=== PATIENT | male | born 1945 | race African-American/Black ===

== ENCOUNTER 2024-10-29 10:47 | Inpatient (IN) | payer MEDICARE, OTHER ==
[~2024-10-29] VITALS: Ht 182.9 cm; Wt 83.9 kg
[2024-10-29] MEDS ORDERED: ONDANSETRON HCL/PF 4 MG/2 ML VIAL ONE (11:24)
[2024-10-29] MEDS ORDERED: MORPHINE SULFATE INJ 4 MG/ML DISP.SYRIN ONE (11:24)
[2024-10-29] MEDS ORDERED: PANTOPRAZOLE 40 MG VIAL ONE (11:24)
[2024-10-29] MEDS ORDERED: ACETAMINOPHEN 325 MG TABLET ONE (11:26)
[2024-10-29 11:30] LABS: BASOPHILS # (AUTO) 0.1 K/uL (0.0-0.2); BASOPHILS % (AUTO) 0.6 % (0.0-2.0); EOSINOPHILS # (AUTO) 0.1 K/uL (0.0-0.7); EOSINOPHILS % (AUTO) 0.4 % (0.0-6.0); HEMATOCRIT 25 % (39-51); HEMOGLOBIN 7.8 g/dL (13.5-17.5); LYMPHOCYTES # (AUTO) 1.3 K/uL (0.8-4.8); LYMPHOCYTES % (AUTO) 7.7 % (20.0-44.0); MEAN CORPUSCULAR HEMOGLOBIN 26 PG (26.0-33.0); MEAN CORPUSCULAR HGB CONC 32 g/dl (31.0-36.0); MEAN CORPUSCULAR VOLUME 83 fL (80-96); NEUTROPHILS # (AUTO) 14.1 K/uL (1.8-8.9); NEUTROPHILS % (AUTO) 85.3 % (43.0-81.0); PLATELET COUNT (AUTO) 718 K/uL (150-450); RED BLOOD CELL COUNT(AUTO) 2.97 MIL/uL (4.5-6.0); RED CELL DISTRIBUTION WIDTH 18.3 % (11.5-15.0); WHITE BLOOD COUNT (AUTO) 16.5 K/uL (4.3-11.0)
[2024-10-29] MEDS: IV NS 0.9% 1,000 ML BAG IV ONE (11:30)
[2024-10-29] MEDS: IV NS 0.9% 500 ML BAG IV ONE (11:38)
[2024-10-29 11:43] LABS: CALCIUM, SERUM 9.2 mg/dL (8.5-10.1); CARBON DIOXIDE 28 mmol/L (21-32); CHLORIDE 107 mmol/L (98-107); CREATININE 0.5 mg/dL (0.6-1.3); GLUCOSE 154 mg/dL (74-106); POTASSIUM 4.5 mmol/L (3.5-5.1); SODIUM SERUM 143 mmol/L (136-145); UREA NITROGEN, BLOOD 20 mg/dL (7-18)
[2024-10-29 11:44] LABS: INR 1.2 (0.91-1.10); PARTIAL THROMBOPLASTIN TIME 28.2 SEC (24.3-34.3); PROTHROMBIN TIME 12.6 SECS (9.2-11.1)
[2024-10-29 11:49] LABS: ALANINE AMINOTRANSFERASE 49 U/L (12-78); ALBUMIN 1.7 g/dL (3.4-5.0); ALKALINE PHOSPHATASE 105 U/L (46-116); ASPARTATE AMINOTRANSFERASE 38 U/L (15-37); BILIRUBIN,DIRECT 0.1 mg/dL (0.0-0.2); BILIRUBIN,TOTAL 0.5 mg/dL (0.2-1.0); LIPASE 63 U/L (16-77); TOTAL PROTEIN, SERUM 8.4 g/dL (6.4-8.2)
[2024-10-29 11:52] LABS: LACTIC ACID 1.3 mmol/L (0.4-2.0)
[2024-10-29] MEDS: ACETAMINOPHEN 650 MG/20 ML UDC- SA PATIENTS-FEVER ONLY GT PRN (12:00)
[2024-10-29] MEDS: PIPERACILLIN /TAZOBACTAM 3.375 G in IV D5W 50 ML IV ONE (12:00)
[2024-10-29] MEDS: MORPHINE SULFATE INJ 2 MG/ML DISP.SYRIN IV ONE (12:16)
[2024-10-29] MEDS: PANTOPRAZOLE 40 MG VIAL IV ONE (12:16)
[2024-10-29] MEDS: ONDANSETRON HCL/PF 4 MG/2 ML VIAL IVP ONE (12:16)
[2024-10-29 12:20] LABS: APPEARANCE,URINE CLEAR (CLEAR); BILIRUBIN,URINE NEGATIVE (NEGATIVE); BLOOD, URINE NEGATIVE Ery/uL (NEGATIVE); COLOR,URINE YELLOW (YELLOW); KETONES,URINE NEGATIVE (NEGATIVE); LEUKOCYTE ESTERASE ,URINE NEGATIVE (NEGATIVE); NITRITE, URINE NEGATIVE (NEGATIVE); PROTEIN,URINE TRACE mg/dl (NEGATIVE); UGLUCOSE NEGATIVE (NEGATIVE); UROBILINOGEN,URINE 0.2 EU/dL (0.2)
[2024-10-29 12:28] LABS: ADD URINE CULTURE NO; BACTERIA,URINE Few /HPF (None Seen); MUCUS,URINE Few /LPF (None Seen); RBC,URINE 0-2 /HPF (0-2); SQUAMOUS EPITHELIAL CELL,UR 0-2 /HPF (None Seen)
[2024-10-29] MEDS ORDERED: POVI1MED TP (12:42)
[2024-10-29] MEDS ORDERED: ACET325T53 GT (12:42)
[2024-10-29] MEDS ORDERED: MULT-213 GT (12:42)
[2024-10-29] MEDS ORDERED: FERR220S2 GT (12:42)
[2024-10-29] MEDS ORDERED: INSU100V39 SQ (12:42)
[2024-10-29] MEDS ORDERED: OMEP40CA21 GT (12:42)
[2024-10-29] MEDS ORDERED: COLL30OI TP (12:42)
[2024-10-29] MEDS ORDERED: ZINC220C6 GT (12:42)
[2024-10-29] MEDS ORDERED: ASPI-1169 GT (12:42)
[2024-10-29] MEDS ORDERED: QUET25TA GT (12:42)
[2024-10-29] MEDS ORDERED: METO50TA16 GT (12:42)
[2024-10-29] MEDS ORDERED: AMIN30LI2 GT (12:42)
[2024-10-29] MEDS ORDERED: INSU100V7 SQ (12:42)
[2024-10-29] MEDS ORDERED: TAMS-12 GT (12:42)
[2024-10-29] MEDS ORDERED: CLOP75TA15 GT (12:42)
[2024-10-29] MEDS ORDERED: ASCO500T21 GT (12:42)
[2024-10-29] MEDS ORDERED: TRAM50TA2 GT (12:42)
[2024-10-29] MEDS ORDERED: ATOR40TA GT (12:42)
[2024-10-29] MEDS ORDERED: POLY17PO4 GT (12:42)
[2024-10-29] MEDS ORDERED: HYDR-4303 GT (12:42)
[2024-10-29] MEDS ORDERED: ACETAMINOPHEN 650 MG/SUPP.RECT RC ONE (13:20)
[2024-10-29] MEDS: ACETAMINOPHEN 650 MG/SUPP.RECT RC ONE (13:28)
[2024-10-29] MEDS ORDERED: MAG HYDROX/AL HYDROX/SIMETH 30 ML UDC PO PRN (14:00)
[2024-10-29] MEDS ORDERED: IPRATROPIUM NEB FS 0.5 MG/2.5 ML AMPUL.NEB NEB PRN (14:00)
[2024-10-29] MEDS ORDERED: Z GUARD REMEDY 4 OZ OINT TP PRN (14:00)
[2024-10-29] MEDS ORDERED: MAGNESIUM HYDROXIDE 30 ML UDC PO PRN (14:00)
[2024-10-29] MEDS ORDERED: DEXTROSE 50%-WATER 50 ML DISP.SYRIN IV PRN (14:00)
[2024-10-29] MEDS ORDERED: ONDANSETRON HCL/PF 4 MG/2 ML VIAL IVP PRN (14:00)
[2024-10-29] MEDS ORDERED: ENOXAPARIN SODIUM 40 MG/0.4 ML DISP.SYRIN SQ SCH (14:00)
[2024-10-29] MEDS ORDERED: ALBUTEROL FS 2.5 MG/3 ML VIAL.NEB NEB PRN (14:00)
[2024-10-29] MEDS ORDERED: ACETAMINOPHEN 325 MG TABLET PO PRN (14:00)
[2024-10-29] MEDS: IV D5 LR 1,000 ML IV PRN (17:06)
[2024-10-29] MEDS: OLANZAPINE 10 MG VIAL IM ONE (17:17)
[2024-10-29] MEDS: VANCOMYCIN 1 GM in IV D5W 250ml IV ONE ×2 (17:30→18:44)
[2024-10-29] MEDS: BLOOD SUGAR DIAGNOSTIC 1 EACH STRIP IN SCH (17:43)
[2024-10-29 18:00] VITALS: BP 142/68; TEMP 98.9; O2SAT 98
[2024-10-29] MEDS: PIPERACILLIN /TAZOBACTAM 3.375 G in IV D5W 50 ML IV SCH (21:59)
[2024-10-29 22:00] VITALS: BP 148/87; TEMP 99; O2SAT 99
[2024-10-30] MEDS: INSULIN REGULAR, HUMAN 100 UNIT/ML 3 ML VIAL SQ PRN (01:02)
[2024-10-30] MEDS: VANCOMYCIN HCL 1.25 GM in IV D5W 250 ML IV SCH (01:52)
[2024-10-30 02:00] VITALS: BP 150/89; TEMP 98.1; O2SAT 99
[2024-10-30 06:00] VITALS: BP 150/86; TEMP 98.3; O2SAT 99
[2024-10-30 07:25] LABS: BASOPHILS # (AUTO) 0.1 K/uL (0.0-0.2); BASOPHILS % (AUTO) 0.6 % (0.0-2.0); EOSINOPHILS % (AUTO) 0.2 % (0.0-6.0); HEMATOCRIT 24 % (39-51); HEMOGLOBIN 7.5 g/dL (13.5-17.5); LYMPHOCYTES # (AUTO) 0.9 K/uL (0.8-4.8); MEAN CORPUSCULAR HEMOGLOBIN 26 PG (26.0-33.0); MEAN CORPUSCULAR HGB CONC 31 g/dl (31.0-36.0); MEAN CORPUSCULAR VOLUME 84 fL (80-96); MONOCYTES # (AUTO) 0.9 K/uL (0.1-1.30); MONOCYTES % (AUTO) 6.8 % (2.0-12.0); NEUTROPHILS # (AUTO) 11.2 K/uL (1.8-8.9); NEUTROPHILS % (AUTO) 85.4 % (43.0-81.0); PLATELET COUNT (AUTO) 558 K/uL (150-450); RED BLOOD CELL COUNT(AUTO) 2.85 MIL/uL (4.5-6.0); WHITE BLOOD COUNT (AUTO) 13.1 K/uL (4.3-11.0)
[2024-10-30 08:00] VITALS: BP 157/86; TEMP 99; O2SAT 100
[2024-10-30] MEDS: PANTOPRAZOLE 40 MG VIAL IV SCH (08:07)
[2024-10-30 08:17] LABS: CALCIUM, SERUM 8.7 mg/dL (8.5-10.1); CREATININE 0.6 mg/dL (0.6-1.3); MAGNESIUM 2.3 mg/dL (1.8-2.4); PHOSPHORUS 2.8 mg/dL (2.5-4.9); POTASSIUM 3.9 mmol/L (3.5-5.1)
[2024-10-30 08:29] LABS: THYROID STIMULATING HORMONE 0.86 uIU/mL (0.358-3.74)
[2024-10-30] MEDS: DAKINS QUARTER STRENGTH (0.125%) 480 ML BOTTLE TOP SCH ×2 (09:30→10:26)
[2024-10-30] MEDS: OLANZAPINE 10 MG VIAL IM ONE (12:33)
[2024-10-30 20:00] VITALS: BP 152/83; TEMP 99.7; O2SAT 100
[2024-10-30] MEDS: VANCOMYCIN 750 MG in IV D5W 250 ML IV SCH (21:30)
[2024-10-31] VITALS (7 sets, daily range): BP systolic 145–159; BP diastolic 80–99; TEMP 98.1–99.7; O2SAT 97–100
[2024-10-31] MEDS ORDERED: FENTANYL PF 100MCG/2ML AMPUL ONE (01:23)
[2024-10-31] MEDS: MORPHINE SULFATE INJ 4 MG/ML DISP.SYRIN IV PRN (04:54)
[2024-10-31 06:55] LABS: BASOPHILS # (AUTO) 0.1 K/uL (0.0-0.2); BASOPHILS % (AUTO) 0.8 % (0.0-2.0); EOSINOPHILS # (AUTO) 0.1 K/uL (0.0-0.7); EOSINOPHILS % (AUTO) 0.6 % (0.0-6.0); HEMATOCRIT 24 % (39-51); HEMOGLOBIN 7.6 g/dL (13.5-17.5); LYMPHOCYTES # (AUTO) 1.2 K/uL (0.8-4.8); LYMPHOCYTES % (AUTO) 11.7 % (20.0-44.0); MEAN CORPUSCULAR HEMOGLOBIN 26 PG (26.0-33.0); MEAN CORPUSCULAR HGB CONC 32 g/dl (31.0-36.0); MEAN CORPUSCULAR VOLUME 83 fL (80-96); MONOCYTES # (AUTO) 0.7 K/uL (0.1-1.30); MONOCYTES % (AUTO) 6.7 % (2.0-12.0); NEUTROPHILS # (AUTO) 8.2 K/uL (1.8-8.9); NEUTROPHILS % (AUTO) 80.2 % (43.0-81.0); PLATELET COUNT (AUTO) 618 K/uL (150-450); RED BLOOD CELL COUNT(AUTO) 2.87 MIL/uL (4.5-6.0); RED CELL DISTRIBUTION WIDTH 18.5 % (11.5-15.0); WHITE BLOOD COUNT (AUTO) 10.2 K/uL (4.3-11.0)
[2024-10-31 07:10] LABS: CALCIUM, SERUM 8.9 mg/dL (8.5-10.1); CREATININE 0.7 mg/dL (0.6-1.3); POTASSIUM 3.3 mmol/L (3.5-5.1)
[2024-10-31] MEDS: POTASSIUM CL. PREMIX PERIPHER. 50 ML IV SCH (11:14)
[2024-11-01] VITALS (12 sets, daily range): BP systolic 141–166; BP diastolic 84–96; TEMP 97.6–99; O2SAT 96–100
[2024-11-01 06:54] LABS: CALCIUM, SERUM 8.8 mg/dL (8.5-10.1); CREATININE 0.7 mg/dL (0.6-1.3); POTASSIUM 3.1 mmol/L (3.5-5.1)
[2024-11-01 08:34] LABS: BASOPHILS # (AUTO) 0.1 K/uL (0.0-0.2); BASOPHILS % (AUTO) 0.6 % (0.0-2.0); EOSINOPHILS # (AUTO) 0.1 K/uL (0.0-0.7); EOSINOPHILS % (AUTO) 0.6 % (0.0-6.0); HEMATOCRIT 22 % (39-51); LYMPHOCYTES # (AUTO) 1.1 K/uL (0.8-4.8); LYMPHOCYTES % (AUTO) 11.4 % (20.0-44.0); MEAN CORPUSCULAR HEMOGLOBIN 26 PG (26.0-33.0); MEAN CORPUSCULAR HGB CONC 31 g/dl (31.0-36.0); MEAN CORPUSCULAR VOLUME 82 fL (80-96); MONOCYTES # (AUTO) 0.7 K/uL (0.1-1.30); MONOCYTES % (AUTO) 7.3 % (2.0-12.0); NEUTROPHILS # (AUTO) 7.7 K/uL (1.8-8.9); NEUTROPHILS % (AUTO) 80.1 % (43.0-81.0); PLATELET COUNT (AUTO) 609 K/uL (150-450); RED BLOOD CELL COUNT(AUTO) 2.67 MIL/uL (4.5-6.0); RED CELL DISTRIBUTION WIDTH 19.1 % (11.5-15.0); WHITE BLOOD COUNT (AUTO) 9.6 K/uL (4.3-11.0)
[2024-11-01 08:36] LABS: HEMOGLOBIN 6.8 g/dL (13.5-17.5)
[2024-11-01] MEDS: POTASSIUM CL. PREMIX PERIPHER. 50 ML IV SCH (10:18)
[2024-11-01 10:23] LABS: NEUTROPHILS % (MANUAL) 90 (42-76)
[2024-11-01 10:24] LABS: ANISOCYTOSIS 1+; HYPOCHROMASIA RARE; LYMPHOCYTES % (MANUAL) 7 % (16-48); MONOCYTES % (MANUAL) 3 % (0-11.0); PLATELET ESTIMATE INCREASED
[2024-11-02] VITALS: BP 153/98; TEMP 99; O2SAT 98
[2024-11-02 04:00] VITALS: BP 156/80; TEMP 98.8; O2SAT 99
[2024-11-02 06:42] LABS: BASOPHILS # (AUTO) 0.1 K/uL (0.0-0.2); BASOPHILS % (AUTO) 0.8 % (0.0-2.0); EOSINOPHILS # (AUTO) 0.1 K/uL (0.0-0.7); EOSINOPHILS % (AUTO) 1.2 % (0.0-6.0); HEMATOCRIT 30 % (39-51); HEMOGLOBIN 9.8 g/dL (13.5-17.5); LYMPHOCYTES # (AUTO) 0.8 K/uL (0.8-4.8); LYMPHOCYTES % (AUTO) 8.8 % (20.0-44.0); MEAN CORPUSCULAR HEMOGLOBIN 27 PG (26.0-33.0); MEAN CORPUSCULAR HGB CONC 32 g/dl (31.0-36.0); MEAN CORPUSCULAR VOLUME 84 fL (80-96); MONOCYTES # (AUTO) 0.7 K/uL (0.1-1.30); MONOCYTES % (AUTO) 7.3 % (2.0-12.0); NEUTROPHILS # (AUTO) 7.7 K/uL (1.8-8.9); NEUTROPHILS % (AUTO) 81.9 % (43.0-81.0); PLATELET COUNT (AUTO) 604 K/uL (150-450); RED BLOOD CELL COUNT(AUTO) 3.61 MIL/uL (4.5-6.0); WHITE BLOOD COUNT (AUTO) 9.4 K/uL (4.3-11.0)
[2024-11-02 06:50] LABS: CREATININE 0.6 mg/dL (0.6-1.3); POTASSIUM 3.3 mmol/L (3.5-5.1)
[2024-11-02 08:00] VITALS: BP 177/92; TEMP 98.4; O2SAT 97
[2024-11-02] MEDS: POTASSIUM CL. PREMIX PERIPHER. 50 ML IV SCH (10:12)
[2024-11-02] MEDS: hydrALAZINE HCL IV 20 MG VIAL IV PRN (10:33)
[2024-11-02 12:00] VITALS: BP 122/85; TEMP 97.7; O2SAT 97
[2024-11-02 16:00] VITALS: BP 167/93; TEMP 98.4; O2SAT 97
[2024-11-02 20:00] VITALS: BP 147/95; TEMP 99; O2SAT 99
[2024-11-03] VITALS: BP 187/98; TEMP 98.8; O2SAT 99
[2024-11-03 04:00] VITALS: BP 130/98; TEMP 98.4; O2SAT 99
[2024-11-03 06:57] LABS: BASOPHILS # (AUTO) 0.1 K/uL (0.0-0.2); BASOPHILS % (AUTO) 0.6 % (0.0-2.0); EOSINOPHILS % (AUTO) 0.2 % (0.0-6.0); HEMATOCRIT 32 % (39-51); HEMOGLOBIN 10.7 g/dL (13.5-17.5); LYMPHOCYTES # (AUTO) 0.9 K/uL (0.8-4.8); LYMPHOCYTES % (AUTO) 9.8 % (20.0-44.0); MEAN CORPUSCULAR HEMOGLOBIN 27 PG (26.0-33.0); MEAN CORPUSCULAR HGB CONC 33 g/dl (31.0-36.0); MEAN CORPUSCULAR VOLUME 83 fL (80-96); MONOCYTES # (AUTO) 0.6 K/uL (0.1-1.30); MONOCYTES % (AUTO) 6.1 % (2.0-12.0); NEUTROPHILS % (AUTO) 83.3 % (43.0-81.0); PLATELET COUNT (AUTO) 662 K/uL (150-450); RED BLOOD CELL COUNT(AUTO) 3.92 MIL/uL (4.5-6.0); RED CELL DISTRIBUTION WIDTH 18.4 % (11.5-15.0); WHITE BLOOD COUNT (AUTO) 9.6 K/uL (4.3-11.0)
[2024-11-03 07:23] LABS: CALCIUM, SERUM 8.9 mg/dL (8.5-10.1); CREATININE 1.2 mg/dL (0.6-1.3); POTASSIUM 3.3 mmol/L (3.5-5.1)
[2024-11-03 08:00] VITALS: BP 180/103; TEMP 98.4; O2SAT 99
[2024-11-03] MEDS: POTASSIUM CL. PREMIX PERIPHER. 50 ML IV SCH ×2 (09:48→10:58)
[2024-11-03] MEDS ORDERED: ANESTHESIA TRAY IN PYXIS 1 EA TRAY MC ONE (12:27)
[2024-11-03 16:00] VITALS: BP 157/98; TEMP 98.1; O2SAT 99
[2024-11-03] MEDS: VANCOMYCIN 1 GM in IV D5W 250ml IV SCH (16:47)
[2024-11-03 20:00] VITALS: BP 159/87; TEMP 100; O2SAT 100
[2024-11-04 04:00] VITALS: BP 169/91; TEMP 99.3; O2SAT 98
[2024-11-04] MEDS: GLUCERNA 1.2 1,000 ML BOTTLE NG PRN (07:29)
[2024-11-04 07:40] LABS: BASOPHILS # (AUTO) 0.1 K/uL (0.0-0.2); BASOPHILS % (AUTO) 0.6 % (0.0-2.0); EOSINOPHILS % (AUTO) 0.4 % (0.0-6.0); HEMATOCRIT 30 % (39-51); HEMOGLOBIN 9.6 g/dL (13.5-17.5); LYMPHOCYTES # (AUTO) 0.9 K/uL (0.8-4.8); LYMPHOCYTES % (AUTO) 9.8 % (20.0-44.0); MEAN CORPUSCULAR HEMOGLOBIN 27 PG (26.0-33.0); MEAN CORPUSCULAR HGB CONC 32 g/dl (31.0-36.0); MEAN CORPUSCULAR VOLUME 84 fL (80-96); MONOCYTES # (AUTO) 0.7 K/uL (0.1-1.30); NEUTROPHILS # (AUTO) 7.8 K/uL (1.8-8.9); NEUTROPHILS % (AUTO) 82.2 % (43.0-81.0); PLATELET COUNT (AUTO) 572 K/uL (150-450); RED BLOOD CELL COUNT(AUTO) 3.56 MIL/uL (4.5-6.0); RED CELL DISTRIBUTION WIDTH 18.6 % (11.5-15.0); WHITE BLOOD COUNT (AUTO) 9.5 K/uL (4.3-11.0)
[2024-11-04 07:43] LABS: CALCIUM, SERUM 8.8 mg/dL (8.5-10.1); CREATININE 1.3 mg/dL (0.6-1.3); POTASSIUM 3.1 mmol/L (3.5-5.1)
[2024-11-04] MEDS: POTASSIUM CL. PREMIX PERIPHER. 50 ML IV SCH (09:26)
[2024-11-04] MEDS ORDERED: POTASSIUM CHLORIDE 20 MEQ POWDER PACKET NG SCH (10:00)
[2024-11-04 12:00] VITALS: BP 169/91; TEMP 99.3; O2SAT 98
[2024-11-04] MEDS ORDERED: QUETIAPINE FUMARATE 25 MG TABLET PO SCH (13:30)
[2024-11-04] MEDS: QUETIAPINE FUMARATE 25 MG TABLET PO SCH (15:03)
[2024-11-04] MEDS: VANCOMYCIN 750 MG in IV D5W 250 ML IV SCH (16:00)
[2024-11-04 20:00] VITALS: BP 174/91; TEMP 96.5; O2SAT 98
[2024-11-05 04:00] VITALS: BP 177/97; TEMP 97.5; O2SAT 100
[2024-11-05 06:45] LABS: BASOPHILS # (AUTO) 0.1 K/uL (0.0-0.2); BASOPHILS % (AUTO) 0.6 % (0.0-2.0); EOSINOPHILS # (AUTO) 0.1 K/uL (0.0-0.7); EOSINOPHILS % (AUTO) 1.2 % (0.0-6.0); HEMATOCRIT 28 % (39-51); HEMOGLOBIN 9.1 g/dL (13.5-17.5); LYMPHOCYTES # (AUTO) 0.9 K/uL (0.8-4.8); LYMPHOCYTES % (AUTO) 9.1 % (20.0-44.0); MEAN CORPUSCULAR HEMOGLOBIN 27 PG (26.0-33.0); MEAN CORPUSCULAR HGB CONC 32 g/dl (31.0-36.0); MEAN CORPUSCULAR VOLUME 84 fL (80-96); MONOCYTES # (AUTO) 0.6 K/uL (0.1-1.30); MONOCYTES % (AUTO) 6.2 % (2.0-12.0); NEUTROPHILS # (AUTO) 7.9 K/uL (1.8-8.9); NEUTROPHILS % (AUTO) 82.9 % (43.0-81.0); PLATELET COUNT (AUTO) 559 K/uL (150-450); RED BLOOD CELL COUNT(AUTO) 3.34 MIL/uL (4.5-6.0); RED CELL DISTRIBUTION WIDTH 19.2 % (11.5-15.0); WHITE BLOOD COUNT (AUTO) 9.5 K/uL (4.3-11.0)
[2024-11-05 07:32] LABS: ALBUMIN 1.6 g/dL (3.4-5.0); BILIRUBIN,TOTAL 0.4 mg/dL (0.2-1.0); CALCIUM, SERUM 8.6 mg/dL (8.5-10.1); CREATININE 1.3 mg/dL (0.6-1.3); MAGNESIUM 2.4 mg/dL (1.8-2.4); POTASSIUM 3.8 mmol/L (3.5-5.1); TOTAL PROTEIN, SERUM 7.1 g/dL (6.4-8.2)
[2024-11-05 08:00] VITALS: BP 129/62; TEMP 98.4; O2SAT 97
[2024-11-05] MEDS: PANTOPRAZOLE 40 MG/PACK PACK GT SCH (09:27)
[2024-11-05 12:00] VITALS: O2SAT 100
[2024-11-05] MEDS: IV D5W 1,000 ML IV ONE (15:07)
[2024-11-05 16:00] VITALS: BP 129/62; TEMP 98; O2SAT 99
[2024-11-05 20:00] VITALS: BP 164/92; TEMP 97.7; O2SAT 100
[2024-11-05] MEDS ORDERED: CEFEPIME 1 GM in IV D5W 50 ML IV SCH (21:00)
[2024-11-05] MEDS: LINEZOLID 600 MG TABLET PO SCH (21:15)
[2024-11-05] MEDS: CEFEPIME 2 GM in IV D5W 100 ML IV SCH (21:15)
[2024-11-06 04:00] VITALS: BP 158/83; TEMP 98.1; O2SAT 100
[2024-11-06 07:07] LABS: PTH, INTACT 23 pg/mL (15-65)
[2024-11-06 07:37] LABS: BASOPHILS % (AUTO) 0.3 % (0.0-2.0); EOSINOPHILS # (AUTO) 0.2 K/uL (0.0-0.7); EOSINOPHILS % (AUTO) 1.9 % (0.0-6.0); HEMATOCRIT 29 % (39-51); HEMOGLOBIN 9.1 g/dL (13.5-17.5); LYMPHOCYTES # (AUTO) 0.9 K/uL (0.8-4.8); LYMPHOCYTES % (AUTO) 9.6 % (20.0-44.0); MEAN CORPUSCULAR HEMOGLOBIN 27 PG (26.0-33.0); MEAN CORPUSCULAR HGB CONC 31 g/dl (31.0-36.0); MEAN CORPUSCULAR VOLUME 85 fL (80-96); MONOCYTES # (AUTO) 0.6 K/uL (0.1-1.30); MONOCYTES % (AUTO) 6.6 % (2.0-12.0); NEUTROPHILS # (AUTO) 7.6 K/uL (1.8-8.9); NEUTROPHILS % (AUTO) 81.6 % (43.0-81.0); PLATELET COUNT (AUTO) 490 K/uL (150-450); RED BLOOD CELL COUNT(AUTO) 3.42 MIL/uL (4.5-6.0); RED CELL DISTRIBUTION WIDTH 18.8 % (11.5-15.0); WHITE BLOOD COUNT (AUTO) 9.3 K/uL (4.3-11.0)
[2024-11-06 07:40] LABS: CALCIUM, SERUM 8.4 mg/dL (8.5-10.1); CREATININE 1.1 mg/dL (0.6-1.3); POTASSIUM 3.6 mmol/L (3.5-5.1)
[2024-11-06] MEDS: QUETIAPINE FUMARATE 25 MG TABLET PO SCH (08:44)
[2024-11-06] MEDS ORDERED: CEFE2FRO IV (08:51)
[2024-11-06] MEDS ORDERED: Linezolid PO (08:51)
[2024-11-06] MEDS ORDERED: PANTOPRAZOLE 40 MG/PACK PACK GT SCH (09:00)
[2024-11-06 12:00] VITALS: BP 167/97; TEMP 98.5; O2SAT 99
[2024-11-06] MEDS: MEROPENEM 1 G in IV NS 0.9% 100 ML IV SCH (12:34)
[2024-11-06] MEDS ORDERED: AMIODARONE 450 MG in IV D5W 250 ML IV PRN (14:30)
[2024-11-06] MEDS: AMIODARONE 150 MG in IV D5W 100 ML IV ONE (14:46)
[2024-11-06] MEDS: AMIODARONE 450 MG in IV D5W 241 ML IV PRN (15:19)
[2024-11-06] MEDS: IV NS 0.9% 1,000 ML IV PRN (15:50)
[2024-11-06 16:00] VITALS: BP 106/67; TEMP 97.5; O2SAT 99
[2024-11-06] MEDS ORDERED: IV NS 0.9% 1,000 ML BAG IV PRN (16:00)
[2024-11-06 20:00] VITALS: BP 169/77; TEMP 97.9; O2SAT 99
[2024-11-06 21:30] VITALS: BP 140/68; O2SAT 99
[2024-11-06] MEDS: HALOPERIDOL LACTATE INJ 5 MG/ML VIAL IM PRN (23:05)
[2024-11-07 04:00] VITALS: BP 159/85; TEMP 98.1; O2SAT 100
[2024-11-07] MEDS ORDERED: VANCOMYCIN 750 MG in IV D5W 250 ML IV SCH (04:00)
[2024-11-07 08:00] VITALS: BP 161/87; TEMP 98.2; O2SAT 98
[2024-11-07] MEDS ORDERED: DRON400T6 PO (11:10)
[2024-11-07 12:10] VITALS: BP 165/82; TEMP 98.2; O2SAT 100
[2024-11-07 13:02] LABS: BASOPHILS % (AUTO) 0.3 % (0.0-2.0); EOSINOPHILS # (AUTO) 0.1 K/uL (0.0-0.7); EOSINOPHILS % (AUTO) 1.4 % (0.0-6.0); HEMATOCRIT 28 % (39-51); LYMPHOCYTES # (AUTO) 0.8 K/uL (0.8-4.8); LYMPHOCYTES % (AUTO) 8.7 % (20.0-44.0); MEAN CORPUSCULAR HEMOGLOBIN 27 PG (26.0-33.0); MEAN CORPUSCULAR HGB CONC 32 g/dl (31.0-36.0); MEAN CORPUSCULAR VOLUME 84 fL (80-96); MONOCYTES # (AUTO) 0.5 K/uL (0.1-1.30); MONOCYTES % (AUTO) 5.8 % (2.0-12.0); NEUTROPHILS # (AUTO) 7.8 K/uL (1.8-8.9); NEUTROPHILS % (AUTO) 83.8 % (43.0-81.0); PLATELET COUNT (AUTO) 428 K/uL (150-450); RED BLOOD CELL COUNT(AUTO) 3.33 MIL/uL (4.5-6.0); RED CELL DISTRIBUTION WIDTH 18.5 % (11.5-15.0); WHITE BLOOD COUNT (AUTO) 9.3 K/uL (4.3-11.0)
[2024-11-07 13:24] LABS: ALBUMIN 1.6 g/dL (3.4-5.0); BILIRUBIN,TOTAL 0.3 mg/dL (0.2-1.0); CALCIUM, SERUM 8.3 mg/dL (8.5-10.1); CREATININE 1.3 mg/dL (0.6-1.3); MAGNESIUM 2.5 mg/dL (1.8-2.4); PHOSPHORUS 3.1 mg/dL (2.5-4.9); POTASSIUM 3.6 mmol/L (3.5-5.1); TOTAL PROTEIN, SERUM 6.8 g/dL (6.4-8.2)
[2024-11-07] MEDS ORDERED: IV 1/2NS 1000 ML 1,000 ML IV PRN (14:30)
[2024-11-07 15:00] VITALS: BP 137/79; TEMP 98.1; O2SAT 98
[2024-11-07] MEDS ORDERED: DRONEDARONE HYDROCHLORIDE 400 MG TABLET PO SCH (18:00)
== END 2024-11-07 15:55 | DRG 853 ==
LOC: ER 10:58 → TELE1 15:43 → MEDSG1 11-03 10:23 → TELE-TD 11-06 19:03 → TELE1 11-07 10:38
PROVIDERS: ADMIT Nurse Practitioner Acute Care; ATTEND Internal Medicine
PROC: 0KBN0ZZ Excision of Right Hip Muscle, Open Approach (ICD-10-PCS; 2024-10-31)
PROC: 0KBP0ZZ Excision of Left Hip Muscle, Open Approach (ICD-10-PCS; principal; 2024-10-31 02:00)
PROC: 30233N1 Transfusion of Nonautologous Red Blood Cells into Peripheral Vein, Percutaneous Approach (ICD-10-PCS; 2024-11-01)
PROC: 0DH63UZ Insertion of Feeding Device into Stomach, Percutaneous Approach (ICD-10-PCS; 2024-11-03)
DX: A41.9 Sepsis, unspecified organism (principal); G93.41 Metabolic encephalopathy; L89.154 Pressure ulcer of sacral region, stage 4; J15.69 Pneumonia due to other Gram-negative bacteria; I21.A1 Myocardial infarction type 2; E44.0 Moderate protein-calorie malnutrition; D68.59 Other primary thrombophilia; I48.92 Unspecified atrial flutter; L02.211 Cutaneous abscess of abdominal wall; F05 Delirium due to known physiological condition; Z43.1 Encounter for attention to gastrostomy; E87.0 Hyperosmolality and hypernatremia; F03.93 Unspecified dementia, unspecified severity, with mood disturbance; N17.9 Acute kidney failure, unspecified; D63.8 Anemia in other chronic diseases classified elsewhere; D75.839 Thrombocytosis, unspecified; E11.40 Type 2 diabetes mellitus with diabetic neuropathy, unspecified; E87.6 Hypokalemia; E88.09 Other disorders of plasma-protein metabolism, not elsewhere classified; K21.9 Gastro-esophageal reflux disease without esophagitis; R13.10 Dysphagia, unspecified; Z79.4 Long term (current) use of insulin; Z79.82 Long term (current) use of aspirin; Z87.440 Personal history of urinary (tract) infections; Z20.822 Contact with and (suspected) exposure to COVID-19; I25.10 Atherosclerotic heart disease of native coronary artery without angina pectoris; F03.90 Unspecified dementia, unspecified severity, without behavioral disturbance, psychotic disturbance, mood disturbance, and anxiety; M19.90 Unspecified osteoarthritis, unspecified site; F32.A Depression, unspecified; N40.0 Benign prostatic hyperplasia without lower urinary tract symptoms; Z74.09 Other reduced mobility; F09 Unspecified mental disorder due to known physiological condition; L89.620 Pressure ulcer of left heel, unstageable; L89.610 Pressure ulcer of right heel, unstageable; L89.890 Pressure ulcer of other site, unstageable; F39 Unspecified mood [affective] disorder; K29.70 Gastritis, unspecified, without bleeding; R93.5 Abnormal findings on diagnostic imaging of other abdominal regions, including retroperitoneum; I10 Essential (primary) hypertension
CPT/HCPCS: 36415; 43246; 71045-TC; 76770-TC; 80048-TC; 80053-TC; 80076-TC; 80202-TC; 81001; 82550-TC; 82962-TC; 83605-TC; 83690-TC; 83735-TC; 83970; 84100-TC; 84155; 84165; 84439-TC; 84443-TC; 84484-TC; 85025-TC; 85730-TC; 86850-TC; 87040-TC; 87081-TC; 87086-TC; 92526; 92611-TC; 93307-TC; A4217; A4223; A6253; A6403; G0378; J0282; J0360; J0692; J1630; J1815; J2185; J2270; J2405; J2470; J2543; J2704; J3010; J3370; J3371; J3480; J3490; J7030; J7040; J7050; J7060; J7070; J7120; P9016

== ENCOUNTER 2024-11-10 21:50 | Emergency (ER) | payer MEDICARE, OTHER ==
[~2024-11-10] VITALS: Ht 167.6 cm; Wt 63.5 kg
[~2024-11-10 21:50] MED LIST: ACET325T53 GT; AMIN30LI2 GT; ASCO500T21 GT; ASPI-1169 GT; ATOR40TA GT; CEFE2FRO IV; CLOP75TA15 GT; COLL30OI TP; DRON400T6 PO; FERR220S2 GT; HYDR-4303 GT; INSU100V39 SQ; INSU100V7 SQ; Linezolid PO; METO50TA16 GT; MULT-213 GT; OMEP40CA21 GT; POLY17PO4 GT; POVI1MED TP; QUET25TA GT; TAMS-12 GT; TRAM50TA2 GT; ZINC220C6 GT
[2024-11-10 22:14] VITALS: BP 161/91; TEMP 97.5
[2024-11-10] MEDS ORDERED: DIATR MEGLU/DIATRIZOATE SODIUM 30 ML BOTTLE (GASTROGRAPHIN) ONE (23:00)
[2024-11-11 01:37] VITALS: O2SAT 94
== END 2024-11-11 01:39 ==
LOC: ER 21:52
DX: Z43.1 Encounter for attention to gastrostomy (principal); I10 Essential (primary) hypertension; K21.9 Gastro-esophageal reflux disease without esophagitis; Z88.8 Allergy status to other drugs, medicaments and biological substances; Z79.02 Long term (current) use of antithrombotics/antiplatelets; Z79.82 Long term (current) use of aspirin; Z87.440 Personal history of urinary (tract) infections; Z79.899 Other long term (current) drug therapy
CPT/HCPCS: 99284; 43762; 74018 ×2; Q9963